=== PATIENT | male | born 2000 | race African-American/Black ===

== ENCOUNTER 2022-08-21 06:01 | Emergency (ER) | payer OTHER ==
[2022-08-21] MEDS ORDERED: Tetracaine 0.5% PF 4 ML BOT ONE (06:07)
[2022-08-21] MEDS ORDERED: Fluorescein Opthalmic Strip ONE (06:40)
== END 2022-08-21 08:13 | disposition home or self-care (01) ==
LOC: CSHERS 06:01
DX: S05.02XA Injury of conjunctiva and corneal abrasion without foreign body, left eye, initial encounter (principal); S05.01XA Injury of conjunctiva and corneal abrasion without foreign body, right eye, initial encounter; T26.42XA Burn of left eye and adnexa, part unspecified, initial encounter; T26.41XA Burn of right eye and adnexa, part unspecified, initial encounter; X12.XXXA Contact with other hot fluids, initial encounter; Z79.01 Long term (current) use of anticoagulants
CPT/HCPCS: 99283